=== PATIENT | female | born 1940 | race Caucasian/White ===

== ENCOUNTER → 2016-06-02 | Outpatient (CLI) | payer MEDICARE | LOC: GMA 20:08 | PROVIDERS: ATTEND Nurse Practitioner Family | DX: N89.8 Other specified noninflammatory disorders of vagina (principal) ==

== ENCOUNTER → 2016-06-24 | Outpatient (CLI) | payer MEDICARE | END | disposition home or self-care (01) | LOC: GMAB 12:56 | PROVIDERS: ATTEND Family Medicine | DX: Z79.899 Other long term (current) drug therapy (principal) ==

== ENCOUNTER → 2016-07-15 | Outpatient (CLI) | payer MEDICARE | END | disposition home or self-care (01) | LOC: GMAB 12:10 | PROVIDERS: ATTEND Family Medicine | DX: R94.4 Abnormal results of kidney function studies (principal) ==

== ENCOUNTER 2016-12-04 19:56 | Emergency (ER) | payer MEDICARE ==
[2016-12-04] MEDS ORDERED: SULFA/TRIMETH 800/160 (DS) TAB 1 EA TAB PO ONE (20:32)
[2016-12-04 20:33] VITALS: BP 123/64; TEMP 97.6; O2SAT 98
--- NOTE | 2016-12-04 20:35 | ED.PDOC ---
History of Present Illness - General Chief Complaint: Lower Extremity Injury Stated Complaint: injury to Rt rodriguez Time Seen by Provider: 12/04/16 20:03 Source: patient Exam Limitations: no limitations - History of Present Illness Initial Comments: the patient is a 76-year-old female presenting to the emergency room secondary to a skin tear on her anterior rodriguez that is U-shaped and approximately 1 inch on each of the arms of the U. Assessment blood loss prior to arrival 15 cc. No other injuries. No evidence by deformity. The patientgot a scrape while she was in a barn. She did recently have a tetanus shot. The patient is moving extremities well. She appears to be neurovascularly at her baseline distally. Home Medications: Ambulatory Orders Sulfa/Trimeth 800/160 (Ds) Tab [Bactrim DS Tab] 1 ea PO BID #6 tab 12/04/16 Review of Systems - Review of Systems Constitutional: States: no symptoms reported EENTM: States: no symptoms reported Respiratory: States: no symptoms reported Cardiology: States: no symptoms reported Gastrointestinal/Abdominal: States: no symptoms reported Genitourinary: States: no symptoms reported Musculoskeletal: States: no symptoms reported Skin: States: see HPI Neurological: States: no symptoms reported Endocrine: States: no symptoms reported All other Systems: No Change from Baseline Physical Exam - Physical Exam General Appearance: Alert, No apparent distress Eye Exam: bilateral normal Ears, Nose, Throat: normal ENT inspection, normal pharynx Neck: full range of motion, supple Respiratory: no respiratory distress, no accessory muscle use Cardiovascular/Chest: normal peripheral pulses, no edema Peripheral Pulses: dorsalis pedis,right: 2+, dorsalis pedis,left: 2+, posterior tibialis,right: 2+, posterior tibialis,left: 2+ Extremity: normal range of motion, no pedal edema, no calf tenderness, normal capillary refill Neurologic: microbial specialist II-XII nml as tested, alert, normal mood/affect, oriented x 3 Skin Exam: normal color - aceration as per history of present illness. The laceration goes to the skin but not into the muscle. Comments: Vital Signs - 24 hr 12/04/16 20:27 Temperature 97.6 F Pulse Rate [ 61 left] Respiratory 18 Rate Blood Pressure 123/64 [left] O2 Sat by Pulse 98 Oximetry Progress - Progress Progress: 12/04/16 20:34 the patient is a 76-year-old female presenting with a skin tear/ laceration to the anterior right rodriguez. The wound is cleaned with sterile saline. Steri-Strips were applied. The patient had already received a tetanus shot a few weeks ago. The patient is going to be placed on Bactrim DS twice daily for the next 3 days to prevent infection. ER warnings were given. Starting tomorrow she can wash the area with soap and water once daily. Departure - Departure Clinical Impression: Laceration of leg Qualifiers: Encounter type: initial encounter Laterality: right Qualified Code(s): S81.811A - Laceration without foreign body, right lower leg, initial encounter Disposition: Discharge to Home or Self Care Condition: Fair Departure Forms: ED Discharge - Pt. Copy, Patient Portal Self Enrollment Instructions: DI for Laceration Repair Steri-Strips Diet: regular diet Activity: increase activity as tolerated Referrals: Serafin Gonzalez MD [Primary Care Provider] - 1-2 Weeks Prescriptions: Sulfa/Trimeth 800/160 (Ds) Tab [Bactrim DS Tab] 1 ea PO BID #6 tab Home Medications: Ambulatory Orders Sulfa/Trimeth 800/160 (Ds) Tab [Bactrim DS Tab] 1 ea PO BID #6 tab 12/04/16 Additional Instructions: the patient is a 76-year-old female presenting with a skin tear/ laceration to the anterior right rodriguez. The wound is cleaned with sterile saline. Steri-Strips were applied. The patient had already received a tetanus shot a few weeks ago. The patient is going to be placed on Bactrim DS twice daily for the next 3 days to prevent infection. ER warnings were given. Starting tomorrow she can wash the area with soap and water once daily.
== END 2016-12-04 21:00 | disposition home or self-care (01) ==
LOC: ER 19:56
DX: S81.811A Laceration without foreign body, right lower leg, initial encounter (principal); W22.8XXA Striking against or struck by other objects, initial encounter; Y92.71 Barn as the place of occurrence of the external cause

== ENCOUNTER → 2017-04-11 | Outpatient (CLI) | payer MEDICARE | END | disposition home or self-care (01) | LOC: GMAB 14:44 | PROVIDERS: ATTEND Family Medicine | DX: R30.0 Dysuria (principal) ==

== ENCOUNTER → 2017-04-17 | Outpatient (CLI) | payer MEDICARE ==
--- NOTE | 2017-04-18 08:20 | MRI ---
Study: MRI of the Left Hip. Indication: TENDON RUPTURE Technique: Multiplanar, multi sequence MRI of the left hip was obtained without intravenous contrast. Comparison: February 03, 2016. Findings: Mild to moderate left hip osteoarthritis redemonstrated with grade 2/3 chondrosis throughout the majority of the left hip joint with grade 4 chondral loss of the anterior superior acetabulum. Tiny osteophytes noted. Tiny joint effusion. Degenerative tearing left hip labrum. No acute fracture or osteonecrosis. At least mild right hip osteoarthritis noted as well. Pronounced L5-S1 disc disease. Mild pubic symphysis osteoarthritis with moderate left and mild right sacroiliac joint osteoarthritis. Tendinosis bilateral hamstring tendon origins. Tendinosis/attenuation and partial thickness tearing bilateral gluteus medius/minimus tendon insertions with moderate left and mild right greater trochanter bursal edema. Colonic diverticulosis. Impression: Persistent mild to moderate left and mild right hip osteoarthritis without acute fracture or osteonecrosis. Additional stable findings as above. Electronically signed by: Carlos Holguin MD 04/18/2017 8:18 AM [facility]
== END | disposition home or self-care (01) ==
LOC: MRI 13:17
PROVIDERS: ATTEND Orthopaedic Surgery
DX: M16.11 Unilateral primary osteoarthritis, right hip (principal)

== ENCOUNTER → 2017-05-25 | Outpatient (CLI) | payer MEDICARE ==
--- NOTE | 2017-05-29 07:36 | RAD ---
EXAM DESCRIPTION: Hip,Right 2 Views CLINICAL HISTORY: PAIN IN RIGHT HIP COMPARISON: January 28, 2016. FINDINGS: 2 views of the right hip. No acute fracture, dislocation or aggressive bone lesion is present. Bone mineralization appears normal. No erosions are present. No advanced osteoarthritis is present. No gross soft tissue findings. IMPRESSION: No displaced hip fracture. No advanced osteoarthritis. Electronically signed by: Hiro Arvizu MD 05/29/2017 7:35 AM [facility]
--- NOTE | 2017-05-29 07:37 | RAD ---
EXAM DESCRIPTION: Pelvis CLINICAL HISTORY: PAIN IN RIGHT HIP COMPARISON: None FINDINGS: Single frontal view the pelvis. Pelvic ring is intact. Mild bilateral degenerative sacroiliitis is seen. 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 No advanced osteoarthritis of the bilateral hips is demonstrated. IMPRESSION: Degenerative facet joint osteophytic arthritis of the lumbar spine can contribute to posterior hip pain. No advanced osteoarthritis of the bilateral hip joints. Negative for acute pathology. Electronically signed by: Hiro Arvizu MD 05/29/2017 7:37 AM [facility]
== END ==
LOC: RAD 04:23
PROVIDERS: ATTEND Orthopaedic Surgery
DX: M25.551 Pain in right hip (principal); M46.96 Unspecified inflammatory spondylopathy, lumbar region

== ENCOUNTER → 2017-05-30 | Outpatient (CLI) | payer MEDICARE ==
--- NOTE | 2017-05-30 21:00 | MRI ---
EXAM DESCRIPTION: Lumbar Spine w/o Contrast MRI. CLINICAL HISTORY: LOW BACK PAIN COMPARISON: MRI scan lumbar spine 11/24/2010. TECHNIQUE: Multiplanar, multiple standard sequences, non contrast MRI, lumbar spine. FINDINGS: L5-S1: Moderate disc space loss and disc desiccation. Minimal anterior bulging and endplate ridging, greater to the left of midline. Posterior midline 5 mm disc protrusion impressing on the thecal sac. Posterior endplate ridging abutting the thecal sac with bilateral lateral recess narrowing. Mild canal stenosis. This is progressed since the prior study. Minimal facet arthrosis and flavum ligament hypertrophy. Bilateral foraminal stenosis. L4-5: Disc desiccation with disc space maintained. Grade 1 anterolisthesis. Posterior disc bulge 4 mm. Moderate bilateral facet arthrosis and ligament hypertrophy compressing the posterior thecal sac and effacing the subarticular recesses. AP canal diameter 4.5 mm. 6 mm protrusion of the disc into the left foramen impressing on the exiting left L4 nerve with foraminal stenosis. Bilateral L4 pars spondylolysis with marrow edema abutting the defect on the right. This has progressed since the prior study. L3-4: Disc desiccation and minimal posterior disc space loss. Minimal bulge of the disc in the midline and bilateral foramina. Mild left foramen narrowing right foramen patent. Bilateral facet and ligament hypertrophy with moderate canal narrowing and narrowing of the subarticular recesses. L2-3: Disc desiccation and minimal posterior disc space loss. Tiny posterior disc bulge. Minimal facet arthrosis and ligament hypertrophy. Bilateral foramina are patent. L1-2: Disc desiccation and minimal disc space loss. Mild anterior bulging and endplate ridging. Grade 1 retrolisthesis and posterior disc bulge. Bilateral facet arthrosis and posterior ligament hypertrophy. Mild canal narrowing. Mild left foraminal narrowing. Anterior wedging of the L1 vertebral body without marrow edema in the vertebral body or the pedicles. T12-L1: Disc desiccation with minimal anterior bulge and spurs. Schmorl's nodes in the endplates. Posterior disc space narrowing. Grade 1 anterolisthesis. Small posterior disc bulge abutting the conus which terminates at this level. Mild narrowing of the left foramen. Moderate narrowing of the canal. Paravertebral soft tissues diffuse muscle atrophy.. Normal marrow signal in the remaining vertebral bodies and the posterior elements. Vertebral bodies are not compressed at any level. IMPRESSION: 1. Posterior midline L5-S1 disc protrusion impressing on the thecal sac. Mild canal stenosis is multifactorial. Bilateral foraminal stenosis. Progressed since the prior study. 2. Severe multifactorial canal stenosis at L4-5 has progressed since the prior study. Protrusion of the disc into the left foramen has progressed as well with impingement of the left L4 nerve. 3. Bilateral L4 pars spondylolysis. Marrow edema abutting the right side defect which was not seen on the prior study. 4. Anterior wedging deformity of the L1 vertebral body with minimal posterior body retropulsion into the canal but no marrow edema or edema in the pedicles. Stable since the prior study. Electronically signed by: Juice Goss MD 05/30/2017 8:59 PM [facility]
== END ==
LOC: MRI 11:00
PROVIDERS: ATTEND Orthopaedic Surgery
DX: M51.26 Other intervertebral disc displacement, lumbar region (principal); M43.06 Spondylolysis, lumbar region; M48.061 Spinal stenosis, lumbar region without neurogenic claudication

== ENCOUNTER 2017-06-12 20:00 | Emergency (ER) | payer MEDICARE ==
--- NOTE | 2017-06-12 20:13 | ED.PDOC ---
History of Present Illness - General Chief Complaint: Lower Extremity Injury Stated Complaint: pain right foot,hips,lower back Time Seen by Provider: 06/12/17 20:12 Source: patient Exam Limitations: no limitations - History of Present Illness Initial Comments: Efrain Coles 76 y/o female stated while on her way out at the convenience store [employer] one hour prior to er visit she stated tripped on a curb twisted right ankle and fell on her hips and back was help by people at the store to stand up .Had dull pain on her right foot on weight bearing and also achy on both hips and back after the incident and then drove here to ER. Occurred: just prior to arrival, this evening Pain - Lower Extremity: moderate: Right Ankle Method of Injury: fell Improving Factors: rest Worsening Factors: movement Associated Symptoms: pain/see hpi Allergies/Adverse Reactions: Allergies Clindamycin Allergy (Verified 12/04/16 20:33) Home Medications: Ambulatory Orders Meloxicam 06/12/17 Review of Systems - Review of Systems Constitutional: States: no symptoms reported EENTM: States: no symptoms reported Respiratory: States: no symptoms reported Cardiology: States: no symptoms reported Gastrointestinal/Abdominal: States: no symptoms reported Genitourinary: States: no symptoms reported Musculoskeletal: States: back pain, other - pelvic pain Skin: States: no symptoms reported Neurological: States: no symptoms reported Endocrine: States: no symptoms reported Past Medical History (General) - Patient Medical History Hx Asthma: No Hx Cardiac Disorders: No Hx Congestive Heart Failure: No Hx Diabetes: No Surgical History: other - breast biopsy - Vaccination History Hx Tetanus, Diphtheria Vaccination: Yes Hx Influenza Vaccination: No Hx Pneumococcal Vaccination: No - Social History Hx Alcohol Use: Yes - occasional wine Hx Depression: No Hx Physical Abuse: No Hx Emotional Abuse: No Hx Suspected Abuse: No - Activities of Daily Living Grooming Ability: Independent Eating (Feeding) Ability: Independent Toileting Ability: Independent - Female History Patient : No Family Medical History - Family History Mother Family History: Unknown Living Status: Physical Exam - Physical Exam General Appearance: Alert, Comfortable, No apparent distress Eyes, Ears, Nose, Throat: normal ENT inspection Neck: full range of motion, supple Cardiovascular/Respiratory: regular rate, rhythm, normal peripheral pulses, normal breath sounds Back: no CVA tenderness, no vertebral tenderness Thigh/Hip: normal inspection, no evidence of injury Leg: normal inspection, non-tender, no evidence of injury Knee: normal inspection, non-tender, no evidence of injury Ankle: bone tenderness - right ankle, limited ROM - right ankle, pain - right ankle, soft tissue tenderness Neuro/Tendon: normal sensation, normal motor functions, responds to pain Mental Status: alert, oriented x 3 Skin: normal color Progress - Progress Progress: 06/12/17 22:20 Last Vital Signs Temp 97.0 F L 06/12/17 20:30 Pulse 75 06/12/17 20:30 Resp 16 06/12/17 20:30 BP 150/79 06/12/17 20:30 Pulse Ox 95 06/12/17 20:30 - EKG/XRAY/CT XRAY: ankle - no fractures-pelvis ,right foot,l-spine Departure - Departure Clinical Impression: Fall from other slipping, tripping, or stumbling, Pain in right foot, Contusion of lower back and pelvis, initial encounter Time of Disposition: 22:24 Disposition: Discharge to Home or Self Care Departure Forms: ED Discharge - Pt. Copy, Patient Portal Self Enrollment Instructions: DI for Foot Sprain Referrals: Serafin Gonzalez MD [Primary Care Provider] - 1-2 Weeks Home Medications: Ambulatory Orders Meloxicam 06/12/17 Additional Instructions: Continue with all home medications;Follow up with primary Md 06/14/2017 as needed
[2017-06-12 20:34] VITALS: TEMP 97; O2SAT 95
--- NOTE | 2017-06-12 21:32 | RAD ---
EXAM DESCRIPTION: Foot,Right 3 Views CLINICAL HISTORY: tripped, hurt rt foot COMPARISON: None FINDINGS: AP, lateral and oblique views of the right foot were submitted. There is no discrete acute fracture or dislocation. Decreased bone mineralization compatible with osteopenia. There is an enthesophyte at the plantar aspect calcaneus and insertion of the Achilles tendon. There is no radiopaque foreign body material IMPRESSION: No acute fracture or dislocation. Electronically signed by: Rod Estrella MD 06/12/2017 9:31 PM [facility]
--- NOTE | 2017-06-12 21:34 | RAD ---
EXAM DESCRIPTION: Lumbar Spine 3 Views CLINICAL HISTORY: tripped, hurt rt foot COMPARISON: MRI May 30, 2017 FINDINGS: AP and lateral view of the lumbar spine, and coned view of the lumbosacral junction were submitted. There are five true lumbar vertebral bodies. The pedicles are within normal limits. Mild compression deformity of the L1 vertebral body is unchanged compared with the prior examination. Decreased bone mineralization compatible with osteopenia. There is mild grade I spondylolisthesis at L4/L5. There is intervertebral disc space narrowing L3-L4, L4-L5 and L5/S1. There is no acute fracture or spondylolisthesis. IMPRESSION: No acute abnormalities. Electronically signed by: Rod Estrella MD 06/12/2017 9:33 PM [employer]
--- NOTE | 2017-06-12 21:35 | RAD ---
EXAM DESCRIPTION: Pelvis CLINICAL HISTORY: tripped, hurt rt foot COMPARISON: None FINDINGS: Frontal view of the pelvis was submitted. There is no discrete acute fracture. Calcifications within the pelvis compatible with phleboliths. IMPRESSION: No acute abnormalities Electronically signed by: Rod Estrella MD 06/12/2017 9:34 PM [employer]
[2017-06-12] MEDS: HYDROCOD/APAP 5/325 (ER DISP) #3 TAB PO ONE (22:36)
[2017-06-12 22:51] VITALS: BP 140/70
== END 2017-06-12 23:06 | disposition home or self-care (01) ==
LOC: ER 20:00
DX: S30.0XXA Contusion of lower back and pelvis, initial encounter (principal); M25.571 Pain in right ankle and joints of right foot; W01.0XXA Fall on same level from slipping, tripping and stumbling without subsequent striking against object, initial encounter; Y92.512 Supermarket, store or market as the place of occurrence of the external cause

== ENCOUNTER → 2017-08-03 | Outpatient (CLI) | payer MEDICARE | END | disposition home or self-care (01) | LOC: GMAB 16:41 | PROVIDERS: ATTEND Family Medicine | DX: N39.0 Urinary tract infection, site not specified (principal) ==

== ENCOUNTER → 2017-08-11 | Outpatient (CLI) | payer MEDICARE ==
--- NOTE | 2017-08-11 10:18 | RAD ---
EXAM DESCRIPTION: Foot,Right 3 Views CLINICAL HISTORY: 76 years, Female, FRACTURE COMPARISON: Previous study June 12, 2017 TECHNIQUE: AP, lateral, and oblique views of the right foot FINDINGS: Healing fractures of the distal right third and fourth metatarsals. There is callus formation at the necks. No extension into the joints. Osteopenic or osteoporotic appearance the bones. Prominent dorsal and plantar calcaneal enthesophytes. Mild degenerative narrowing of the ankle joint with spurring. There is no radiopaque foreign body. IMPRESSION: Healing fractures of the distal right third and fourth metatarsals. Electronically signed by: Scott García MD 08/11/2017 10:17 AM CDT
== END ==
LOC: RAD 11:20
PROVIDERS: ATTEND Orthopaedic Surgery
DX: S92.334D Nondisplaced fracture of third metatarsal bone, right foot, subsequent encounter for fracture with routine healing (principal)

== ENCOUNTER → 2017-10-17 | Outpatient (CLI) | payer MEDICARE | LOC: GMATM 18:38 | PROVIDERS: ATTEND Nurse Practitioner Family | DX: N30.00 Acute cystitis without hematuria (principal) ==

== ENCOUNTER → 2018-02-19 | Outpatient (CLI) | payer MEDICARE | LOC: GMALS 18:35 | PROVIDERS: ATTEND Nurse Practitioner Acute Care | DX: N30.00 Acute cystitis without hematuria (principal) ==

== ENCOUNTER → 2018-10-22 | Outpatient (CLI) | payer MEDICARE ==
--- NOTE | 2018-10-22 17:23 | US ---
EXAM DESCRIPTION: Venous,Lower Extremity LT CLINICAL HISTORY: LEG PAIN COMPARISON: None Available. TECHNIQUE: Left lower extremity venous duplex FINDINGS: Doppler evaluation of the left lower extremity deep veins was performed. Normal color flow is seen in the common femoral, superficial femoral, profunda femoral and greater saphenous veins. Normal flow is seen in the popliteal vein and veins below the knee in the calf. Normal venous compressibility and flow augmentation. Mild edema in the subcutaneous fatty tissues of the lower leg. IMPRESSION: Negative for evidence of deep venous thrombosis on left lower extremity venous Doppler sonogram. Electronically signed by: Scott García MD 10/22/2018 5:21 PM CDT
--- NOTE | 2018-10-22 17:23 | US ---
EXAM DESCRIPTION: Venous,Lower Extremity RT CLINICAL HISTORY: LEG PAIN COMPARISON: None Available. TECHNIQUE: Right lower extremity venous duplex FINDINGS: Doppler evaluation of the right lower extremity deep veins was performed. Normal color flow is seen in the common femoral, superficial femoral, profunda femoral and greater saphenous veins. Normal flow is seen in the popliteal vein and veins below the knee in the calf. Normal venous compressibility and flow augmentation. Warbled edematous changes are seen in the subcutaneous fat of the right lower leg. IMPRESSION: Negative for evidence of deep venous thrombosis on right lower extremity venous Doppler sonogram. Electronically signed by: Scott García MD 10/22/2018 5:21 PM CDT
== END ==
LOC: LAB.O 16:27
PROVIDERS: ATTEND Family Medicine
DX: M79.605 Pain in left leg (principal); M79.604 Pain in right leg; R60.0 Localized edema

== ENCOUNTER → 2018-11-21 | Outpatient (CLI) | payer MEDICARE | LOC: GMATM 15:32 | PROVIDERS: ATTEND Nurse Practitioner Family | DX: R06.02 Shortness of breath (principal); R30.0 Dysuria ==